=== PATIENT | male | born 1955 | race African-American/Black ===

== ENCOUNTER 2018-05-15 13:26 | Emergency (ER) | payer MEDICAID, OTHER | END 2018-05-15 14:53 | disposition home or self-care (01) | LOC: ERS 13:26 | DX: M54.5 Low back pain (principal); I10 Essential (primary) hypertension; N40.0 Benign prostatic hyperplasia without lower urinary tract symptoms; K21.9 Gastro-esophageal reflux disease without esophagitis; F41.9 Anxiety disorder, unspecified; Z79.899 Other long term (current) drug therapy; Z79.84 Long term (current) use of oral hypoglycemic drugs | CPT/HCPCS: 99283 ==

== ENCOUNTER 2018-05-28 19:24 | Emergency (ER) | payer OTHER ==
[2018-05-28] MEDS ORDERED: Ketorolac Tromethamine 60 MG/2 ML VIAL ONE (21:04)
--- NOTE | 2018-05-28 21:23 | RAD ---
TWO VIEWS RIGHT HIP: Date: 05-28-18 Comparison: None. History: Pain. FINDINGS: No displaced fracture or evidence of dislocation. IMPRESSION: No acute findings. POS: LIZETTE
== END 2018-05-28 21:53 | disposition home or self-care (01) ==
LOC: ERS 19:24
DX: M54.41 Lumbago with sciatica, right side (principal); K21.9 Gastro-esophageal reflux disease without esophagitis; H40.9 Unspecified glaucoma; N40.0 Benign prostatic hyperplasia without lower urinary tract symptoms; F41.9 Anxiety disorder, unspecified; G62.9 Polyneuropathy, unspecified; Z79.899 Other long term (current) drug therapy; Z79.84 Long term (current) use of oral hypoglycemic drugs
CPT/HCPCS: 96372; J1885

== ENCOUNTER 2018-06-12 07:18 | Outpatient (CLI) | payer OTHER | END 2018-06-12 07:19 | disposition home or self-care (01) | LOC: BICMRI 07:18 | PROVIDERS: ATTEND Anesthesiology Pain Medicine | DX: M48.062 Spinal stenosis, lumbar region with neurogenic claudication (principal) | CPT/HCPCS: 72148 ==

== ENCOUNTER 2019-07-23 14:29 | Outpatient (CLI) | payer OTHER ==
[2019-07-23] MEDS ORDERED: Gadobenate Dimeglumine 529 MG/1 ML (20ML VIAL) ONE (16:01)
--- NOTE | 2019-07-24 09:29 | MRI ---
EXAM: MRI of the pelvis/prostate without and with contrast HISTORY: Prostate cancer COMPARISON: None TECHNIQUE: Multiplanar multisequence MR images were obtained of the pelvis without and with IV contra st. Evaluation of this exam was performed with a [employer] workstation. FINDINGS: Central gland: Moderate hypertrophy of the central gland consistent with BPH. No suspicious low T2 si gnal lesion is seen. Peripheral zone: In the right peripheral zone mid gland, slightly towards the base, there is a very subtle low T2 sign al lesion which also has low signal on the ADC map. Evaluation for diffusion in this region cannot be performed secondary to artifact from air in the rectum. This lesion measures 7 mm in greatest dime nsion. This lesion demonstrates a gradual enhancement curve. In the left peripheral zone mid gland, slightly towards the apex, there is a very subtle low T2 signa l lesion which does not demonstrate low signal on the ADC map. Evaluation for diffusion is limited secondary to artifact from air in the rectum. This lesion demonstrates a gradual enhancement curve Seminal vesicles: Intact without abnormality Neurovascular bundles: Intact Pelvic lymph nodes: No pelvic adenopathy Other visualized intrapelvic structures: Unremarkable Osseous structures: No marrow signal abnormality IMPRESSION: PI-RADS Category 3-intermediate (the presence of clinically significant cancer is equivocal)
== END 2019-07-23 14:30 | disposition home or self-care (01) ==
LOC: TBSIIMAG 14:29
PROVIDERS: ATTEND Urology
DX: C61 Malignant neoplasm of prostate (principal)
CPT/HCPCS: 72197; 82565; A9577

== ENCOUNTER 2019-07-26 07:57 | Outpatient (CLI) | payer OTHER ==
[2019-07-26] MEDS ORDERED: ISOVUE-370 76%-LOCM 1 ML ONE (10:24)
--- NOTE | 2019-07-26 11:11 | CT ---
CT OF THE ABDOMEN AND PELVIS WITH AND WITHOUT IV CONTRAST UTILIZING A CT UROGRAM PROTOCOL: INDICATION: 63 mL with a history of prostate cancer with complaints of back pain. COMPARISON: Recent CT evaluation of 11/07/2014. FINDINGS: Noncontrast CT examination demonstrates no definite renal or ureteral calculus. No hydronephrosis is demonstrated. Lobulated contour to the left kidney likely related to prior scarring is stable. No focal renal lesion is demonstrated. No gross urothelial lesion is evident on the delayed phase im ages. Visualized bladder appeared within normal limits. Additional findings: The lung bases are clear. There is mild fatty infiltration of the liver. The pancreas, adrenal glands, and spleen appear withi n normal limits. There is mild atherosclerotic calcification involving the abdominal aorta. There is a retroaortic le ft renal vein. There is a normal appendix in the right lower quadrant. There is postsurgical change of a partial colectomy and reanastomosis of the colosigmoid junction. There are numerous surgical c lips along the left iliac chain vasculature which may reflect prior lymph node dissection. The small bowel is normal appearing. No pathologically enlarged lymph node is grossly evident within the pelv is. The prostate measures 5.5 cm which is slightly smaller than seen on the comparison examination where it measured 6.1 cm. OSSEOUS STRUCTURES: There is scattered degenerative and osteoarthritic change. No suspicious osteolytic or osteoblastic lesion is identified. There is advanced degenerative change at the SI joints. IMPRESSION: 1. No focal renal lesion or hydronephrosis. No gross urothelial lesion. Stable cortical scarring i nvolving the left kidney. 2. No evidence to suggest metastatic disease within the abdomen or pelvis. 3. Fatty liver. 4. Slight interval reduction in size of the prostate gland, previously measuring 6.1 cm and now joann uring 5.5 cm. 5. Postsurgical change as above. POS: OFF
== END 2019-07-26 07:58 | disposition home or self-care (01) ==
LOC: BICCT 07:57
PROVIDERS: ATTEND Urology
DX: C61 Malignant neoplasm of prostate (principal); N28.89 Other specified disorders of kidney and ureter; K76.0 Fatty (change of) liver, not elsewhere classified; Z98.890 Other specified postprocedural states
CPT/HCPCS: 36415; 74178; 81001; 87086

== ENCOUNTER 2019-09-23 10:16 | Emergency (ER) | payer OTHER ==
[2019-09-23] MEDS ORDERED: Ketorolac Tromethamine 30 MG/ML VIAL ONE (11:33)
== END 2019-09-23 12:38 | disposition home or self-care (01) ==
LOC: ERS 10:16
DX: G89.29 Other chronic pain (principal); M54.5 Low back pain; E11.40 Type 2 diabetes mellitus with diabetic neuropathy, unspecified; F41.9 Anxiety disorder, unspecified; I10 Essential (primary) hypertension; E78.00 Pure hypercholesterolemia, unspecified; K21.9 Gastro-esophageal reflux disease without esophagitis; Z79.84 Long term (current) use of oral hypoglycemic drugs; Z79.899 Other long term (current) drug therapy
CPT/HCPCS: 36415; 80053; 80061; 81001; 82043; 82306; 83036; 85025; 96372; 99283; J1885

== ENCOUNTER 2019-09-25 07:37 | Outpatient (CLI) | payer OTHER ==
[2019-09-25 11:35] LABS: Hemoglobin 14.3 g/dL (14.0-18.0); Mean Corpuscular HGB CONC 32.9 g/dL (32.0-36.0); Mean Corpuscular Hemoglobin 29.8 pg (27.0-31.0); Mean Corpuscular Volume 90.5 fL (78.0-98.0); Mean Platelet Volume 7.7 fL (7.4-10.4); Platelet Count 212 thou/uL (130-400); RBC Distribution Width 12.2 % (11.5-14.5); Red Blood Cell (RBC) Count 4.82 mill/uL (4.70-6.10); White Blood Cell (WBC) Count 5.3 thou/uL (4.8-10.8)
[2019-09-25 11:40] LABS: PTT 26.7 SEC (22.9-36.1); Prothrombin Time 13.2 SEC (12.0-14.7)
[2019-09-25 12:08] LABS: Anion Gap 15 mmol/L (10-20); BUN (Urea Nitrogen) 12 mg/dL (8.4-25.7); Calc. Creatinine Clearance 0 mL/min (70-130); Carbon Dioxide 24 mmol/L (23-31); Chloride 103 mmol/L (98-107); Estimated GFR-MDRD 89; Glucose 121 mg/dL (80-115); Potassium 3.9 mmol/L (3.5-5.1); Sodium 138 mmol/L (136-145)
[2019-09-25 13:36] LABS: Bacteria/HPF None Seen HPF (None Seen); Bilirubin Negative (Negative); Blood, Urine Negative (Negative); Clarity Clear (Clear); Glucose, Urine (Dipstick) Normal (Negative); Leukocyte Negative Leu/uL (Negative); Nitrite Negative (Negative); Protein, Urine (Dipstick) Negative (Neg-Trace); RBC/HPF 0-3 HPF (0-3); Squamous Epithelial None Seen HPF (0-3); Urobilinogen Normal mg/dL (Less than 2); WBC/HPF 0-3 HPF (0-3)
--- NOTE | 2019-09-26 07:10 | EKG ---
Test Reason : Blood Pressure : / mmHG Vent. Rate : 071 BPM Atrial Rate : 071 BPM P-R Int : 178 ms QRS Dur : 162 ms QT Int : 396 ms P-R-T Axes : 054 -77 018 degrees QTc Int : 430 ms Normal sinus rhythm Right bundle branch block Left anterior fascicular block Bifascicular block Left ventricular hypertrophy with QRS widening Cannot rule out Septal infarct , age undetermined Lateral infarct , age undetermined Abnormal ECG When compared with ECG of 30-OCT-2014 17:13, Minimal criteria for Septal infarct are now Present T wave inversion no longer evident in Anterolateral leads Confirmed by DR. Garth MEJIA ([id number]) on 09/26/2019 7:10:21 AM Referred By: LEDA Confirmed By:DR. Garth MEJIA
== END 2019-09-25 07:38 | disposition home or self-care (01) ==
LOC: LABBT 07:37
PROVIDERS: ATTEND Urology
DX: Z01.818 Encounter for other preprocedural examination (principal); C61 Malignant neoplasm of prostate; E11.9 Type 2 diabetes mellitus without complications; R97.20 Elevated prostate specific antigen [PSA]; I10 Essential (primary) hypertension; N40.0 Benign prostatic hyperplasia without lower urinary tract symptoms; K57.20 Diverticulitis of large intestine with perforation and abscess without bleeding; G89.29 Other chronic pain; N32.1 Vesicointestinal fistula; R35.0 Frequency of micturition
CPT/HCPCS: 80048; 81001; 85027; 85610; 85730; 87086; 93005; 93010

== ENCOUNTER 2019-10-09 08:42 | Day surgery (SDC) | payer OTHER ==
[2019-09-25 10:23] VITALS: BMI 30.7
[2019-10-09] MEDS ORDERED: Lidocaine 1% PF 5 ML VIAL ONE (10:12)
[2019-10-09] MEDS ORDERED: PROPOFOL 200 MG/20 ML VIAL ONE (10:12)
[2019-10-09] MEDS ORDERED: Levofloxacin 500 mg/D5W 100 ml Premix Bag ONE (10:19)
[2019-10-09] MEDS ORDERED: Fentanyl 100 MCG/2 ML VIAL ONE (11:06)
[2019-10-09] MEDS ORDERED: Iothalamate Meglumine 60% 50 ML VIAL FS ONE (11:13)
--- NOTE | 2019-10-09 14:32 | OP ---
DATE OF PROCEDURE: 10/09/2019 PREOPERATIVE DIAGNOSES: 1. History of Benign prostatic hypertrophy. 2. Prostate cancer, awaiting radiation treatment. POSTOPERATIVE DIAGNOSES: 1. History of Benign prostatic hypertrophy. 2. Prostate cancer, awaiting radiation treatment. PROCEDURES PERFORMED: 1. Cystoscopy. 2. UroLift implant x4.. ANESTHESIA: TIVA. COMPLICATIONS: None apparent. DISPOSITION: To recovery room in stable condition. INDICATIONS FOR PROCEDURE AND HISTORY: Mr. Alamo is a 64-year-old male with history of clinical T1c prostate cancer, awaiting to undergo radiation treatment. Six- month Lupron was initiated. He has difficulty tolerating 9-[id number]-sxinlcurb inhibitor. He presents today for elective UroLift. Risks and complications of the procedure were reviewed with him in detail including, but not limited to, bleeding, pain, infection, injury to adjacent organs, such as neurovascular bundle, ureteral orifices, possible migration of implant, resulting in urolithiasis, stricture formation. All questions were answered to his satisfaction and he desired to proceed. DESCRIPTION OF PROCEDURE: After an informed consent was signed, the patient was taken to the operating room and placed in a dorsal lithotomy position with the genital area prepped and draped in the usual surgical sterile fashion. A 22- Wolof cystoscope was utilized for cystoscopy, which demonstrated subclinical wide caliber bulbar stricture, which does not warrant treatment. Bilobar hyperplasia of the prostate was noted, demonstrating [id number] obstruction. No median lobe was noted. I did perform a rigid cystoscopy to stage his ureters and ureteral orifices as the left UO was difficult to identify on local cystoscopy. Bilateral UOs were identified with the rigid cystoscope about 2 to 3 mm proximal to the bladder neck. These were kept out of harm's way. At this time, the UroLift implant device was inserted with a visual obturator. The first implant was placed on the left side. Care was taken to stay about 1.5 cm proximal to the bladder neck. We then placed 2 implants on the right side. We proceeded to perform the 4th one on the left side; however, it was a pull-through. Therefore, he has total of 3 implants, with 4th one being a pull-through. Restaging with a visual obturator demonstrated that he had an open channel. Therefore, I did not make a further decision to put another UroLift device at this time. He tolerated the procedure well. He will undergo voiding trial. He is advised to continue his BPH medications for now, ciprofloxacin for 5 days, Azo p.r.n. provided. He will return to clinic tomorrow for PVR check. Job ID: [id number] [id number]
== END 2019-10-09 14:30 | disposition home or self-care (01) ==
LOC: SDC 08:42
PROVIDERS: ATTEND Urology
PROC: 0T7D8DZ Dilation of Urethra with Intraluminal Device, Via Natural or Artificial Opening Endoscopic (ICD-10-PCS; principal; 2019-10-09)
DX: N40.1 Benign prostatic hyperplasia with lower urinary tract symptoms (principal); R35.0 Frequency of micturition; N13.8 Other obstructive and reflux uropathy; C61 Malignant neoplasm of prostate; G89.29 Other chronic pain; M54.9 Dorsalgia, unspecified; I10 Essential (primary) hypertension; E78.00 Pure hypercholesterolemia, unspecified; K21.9 Gastro-esophageal reflux disease without esophagitis; E11.9 Type 2 diabetes mellitus without complications; Z79.84 Long term (current) use of oral hypoglycemic drugs; Z79.899 Other long term (current) drug therapy; Z88.0 Allergy status to penicillin; Z88.5 Allergy status to narcotic agent; Z88.6 Allergy status to analgesic agent; Z88.8 Allergy status to other drugs, medicaments and biological substances
CPT/HCPCS: 76000; C1889; J1956; J2001; J2704; J3010